=== PATIENT | male | born 1950 | race Caucasian/White ===

== ENCOUNTER 2019-06-19 20:05 | Emergency (ER) | payer SELFPAY ==
[~2019-06-19] VITALS: Ht 177.8 cm; Wt 96.0 kg
[2019-06-19] MEDS ORDERED: LORAZEPAM 2MG/ML CPJ IM STA (20:50)
[2019-06-19] MEDS ORDERED: HALOPERIDOL LACTATE 5MG/ML VIAL IM STA (20:50)
[2019-06-19] MEDS ORDERED: SODIUM CHLORIDE 0.9% 1,000 ML IV ONE (20:50)
[2019-06-19] MEDS ORDERED: DIPHENHYDRAMINE 50MG/ML VIAL IM STA (20:50)
[2019-06-19 22:02] LABS: *AMPHETAMINES SCREEN URINE NEGATIVE (NEGATIVE); CANNABINOID URINE SCREEN PRESUMTIVE POSITIVE (NEGATIVE); PHENCYCLIDINE URINE SCREEN NEGATIVE (NEGATIVE)
[2019-06-19 22:03] LABS: HEMATOCRIT. 40.3 % (42.0-52.0); HEMOGLOBIN. 13.8 g/dL (14.0-18.0); MEAN CORPUSCULAR HEMOGLOBIN 32.3 pg (28.0-32.0); MEAN CORPUSCULAR VOLUME 94.6 fL (80.0-94.0); MEAN PLATELET VOLUME 6.8 fl (7.4-10.4); PLATELET 246 x1000/uL (130-400); RED BLOOD CELL COUNT 4.26 mill/uL (4.7-6.1); RED CELL DISTRIBUTION WIDTH 13.8 % (11.6-14.6)
[2019-06-19 22:03] LABS: *BARBITURATES SCREEN URINE NEGATIVE (NEGATIVE); *BENZODIAZEPINES SCREEN URINE NEGATIVE (NEGATIVE); *COCAINE SCREEN URINE NEGATIVE (NEGATIVE); METHADONE URINE SCREEN NEGATIVE (NEGATIVE); OPIATES URINE SCREEN NEGATIVE (NEGATIVE)
[2019-06-19 22:07] LABS: CHLORIDE 112 mEq/L (98-107)
[2019-06-19 22:11] LABS: ETHANOL BLOOD 293 mg/dL
[2019-06-20 03:17] VITALS: BP 113/61
== END 2019-06-20 03:26 | disposition home or self-care (01) ==
LOC: ER 20:05
DX: F10.129 Alcohol abuse with intoxication, unspecified (principal); Y90.8 Blood alcohol level of 240 mg/100 ml or more; S09.8XXA Other specified injuries of head, initial encounter; F91.8 Other conduct disorders; F16.10 Hallucinogen abuse, uncomplicated; F12.90 Cannabis use, unspecified, uncomplicated; Z78.1 Physical restraint status; S80.212A Abrasion, left knee, initial encounter; S80.211A Abrasion, right knee, initial encounter; Y93.9 Activity, unspecified; W19.XXXA Unspecified fall, initial encounter; Y92.9 Unspecified place or not applicable
CPT/HCPCS: 36415; 70450; 71045; 73560; 80053; 80305; 80307; 80320; 80329; 85025; 93005; 99284; J2060; J7030; J1200; J1630; G0480